=== PATIENT | female | born 1975 | race American Indian/Alaskan Native ===

== ENCOUNTER 2021-05-22 17:48 | Emergency (ER) | payer BC ==
[2021-05-22] MEDS ORDERED: SODIUM CHLORIDE 0.9% 1000 ML IV SOLN IV ONE ×2 (18:15→21:00)
[2021-05-22] MEDS ORDERED: MORPHINE 4 MG/1 ML INJ IV ONE ×2 (18:16→21:00)
[2021-05-22] MEDS ORDERED: ONDANSETRON 4 MG/2 ML INJ IV ONE ×2 (18:16→21:00)
[2021-05-22] MEDS ORDERED: PIPERACIL/TAZOBACTA 4.5/NS 100 4.5 GM/100 ML VIAL IV ONE ×2 (18:16→21:00)
--- NOTE | 2021-05-22 18:27 | Emergency Department Report ---
<PHYLLIS ISIDRO - Last Filed: 05/22/21 21:38> ED Abdominal Pain HPI - General Chief Complaint: Abdominal Pain Stated Complaint: SHARP PAIN IN STOMACH Time Seen by Provider: 05/22/21 18:14 Source: patient Mode of arrival: Ambulatory Limitations: No Limitations - History of Present Illness Initial Comments: Patient is a 46-year-old female presents emergency room complaints of upper abdominal pain that began a week ago. She states initially it began in her left upper quadrant but now radiates across the entire upper abdomen. She states that she has no appetite. She states that she has been able to tolerate liquids. She states that she has not had a bowel movement approximately 2 days. She states that she went to urgent care and reports that she had a negative COVID-19 test and she states that she was started on Carafate and omeprazole but her symptoms have not been improving. She denies any nausea, vomiting, diarrhea, urinary symptoms, hematochezia, melena, hematemesis. Patient denies any past medical history. No allergies to medications. She denies any past abdominal surgical history. - Related Data Previous Rx's Medication Instructions Recorded Last Taken Type Famotidine [Pepcid] 20 mg PO BID #30 tablet 05/23/21 Unknown Rx HYDROcodone/APAP 5-325 [[place] 1 each PO Q6HR PRN #10 tablet 05/23/21 Unknown Rx 5/325] Ondansetron [Zofran Odt] 4 mg PO Q8HR PRN #15 tab.rapdis 05/23/21 Unknown Rx Pantoprazole [Protonix] 40 mg PO QDAY #30 tablet 05/23/21 Unknown Rx metroNIDAZOLE [Flagyl] 500 mg PO Q12HR #14 tab 05/23/21 Unknown Rx Allergies Allergy/AdvReac Type Severity Reaction Status Date / Time No Known Allergies Allergy Verified 05/22/21 20:43 ED Review of Systems Comment: All other systems reviewed and negative ED Past Medical Hx - Past Medical History Previous Medical History?: No - Surgical History Past Surgical History?: No - Social History Smoking Status: Unknown if ever smoked Substance Use Type: None - Medications Home Medications: Home Medications Medication Instructions Recorded Confirmed Last Taken Type Famotidine [Pepcid] 20 mg PO BID #30 tablet 05/23/21 Unknown Rx HYDROcodone/APAP 5-325 [[place] 1 each PO Q6HR PRN #10 tablet 05/23/21 Unknown Rx 5/325] Ondansetron [Zofran Odt] 4 mg PO Q8HR PRN #15 tab.rapdis 05/23/21 Unknown Rx Pantoprazole [Protonix] 40 mg PO QDAY #30 tablet 05/23/21 Unknown Rx metroNIDAZOLE [Flagyl] 500 mg PO Q12HR #14 tab 05/23/21 Unknown Rx ED Physical Exam - General Limitations: No Limitations General appearance: alert, in no apparent distress - Head Head exam: Present: atraumatic, normocephalic - Eye Eye exam: Present: normal appearance - ENT ENT exam: Present: mucous membranes moist - Respiratory Respiratory exam: Present: normal lung sounds bilaterally. Absent: respiratory distress, wheezes, rales, rhonchi, stridor, chest wall tenderness, accessory muscle use, decreased breath sounds, prolonged expiratory - Cardiovascular Cardiovascular Exam: Present: normal rhythm, tachycardia, normal heart sounds. Absent: systolic murmur, diastolic murmur, rubs, gallop - GI/Abdominal GI/Abdominal exam: Present: soft, tenderness (generalized upper), guarding (voluntary ), normal bowel sounds. Absent: distended, rebound, rigid - Neurological Exam Neurological exam: Present: alert, oriented X3 - Psychiatric Psychiatric exam: Present: normal affect, normal mood - Skin Skin exam: Present: warm, dry, intact ED Medical Decision Making - Lab Data Result diagrams: 05/22/21 18:20 05/22/21 18:20 - Radiology Data Radiology results: report reviewed Ordering Physician: SOLEDAD OSORIO Date of Service: 05/22/21 Procedure(s): CT abdomen pelvis w con Accession Number(s): [id number] cc: SOLEDAD OSORIO CT ABDOMEN AND PELVIS WITH CONTRAST INDICATION / CLINICAL INFORMATION: upper abd pain, fever. TECHNIQUE: Axial CT images were obtained through the abdomen and pelvis after IV contrast. All CT scans at this location are performed using CT dose reduction for ALARA by means of automated exposure control. COMPARISON: None available. FINDINGS: LOWER CHEST: No significant abnormality. LIVER: No significant abnormality. GALLBLADDER: No significant abnormality. BILE DUCTS: No significant abnormality. PANCREAS: No significant abnormality. SPLEEN: No significant abnormality. ADRENALS: No significant abnormality. RIGHT KIDNEY / URETER: No significant abnormality. LEFT KIDNEY / URETER: No significant abnormality. STOMACH / SMALL BOWEL: No significant abnormality. COLON: No significant abnormality. APPENDIX: Nonvisualized. PERITONEUM: No free fluid. No free air. No fluid collection. LYMPH NODES: No significant adenopathy. VASCULAR STRUCTURES: No significant abnormality. URINARY BLADDER: No significant abnormality. REPRODUCTIVE ORGANS: Prominent vessels adjacent to the left ovary with dilatation of the left ovarian vein measuring approximately 1 cm. ADDITIONAL FINDINGS: None. SKELETAL SYSTEM: No significant abnormality. IMPRESSION: 1. No inflammatory process at the upper abdomen. 2. The right lower quadrant/pelvic region is not well evaluated due to possibly of intra-abdominal fat. 3. Possible pelvic venous congestion. Signer Name: Nadeem Crockett MD Signed: 05/22/2021 8:52 PM Workstation Name: [id number] Transcribed By: QI Dictated By: Nadeem Crockett MD Electronically Authenticated By: Nadeem Crockett MD Signed Date/Time: 05/22/212051 DD/ 45 TD/TT: - Medical Decision Making Patient is a 46-year-old female presents emergency room complaints of upper abdominal pain that began a week ago. She states initially it began in her left upper quadrant but now radiates across the entire upper abdomen. She states that she has no appetite. She states that she has been able to tolerate liquids. She states that she has not had a bowel movement approximately 2 days. She states that she went to urgent care and reports that she had a negative COVID-19 test and she states that she was started on Carafate and omeprazole but her symptoms have not been improving. She denies any nausea, vomiting, diarrhea, urinary symptoms, hematochezia, melena, hematemesis. Patient denies any past medical history. No allergies to medications. She denies any past abdominal surgical history. Initial vitals with fever and tachycardia, sepsis protocol initiated. Patient given IV fluids, IV antibiotics, pain medication, nausea medication. On exam patient has generalized upper abdominal tenderness palpation with some voluntary guarding, no rebound. Labs are stable. No leukocytosis. hCG is negative. UA without evidence of UTI. CT abdomen pelvis with IV contrast: 1. No inflammatory process at the upper abdomen. 2. The right lower quadrant/pelvic region is not well evaluated due to possibly of intra-abdominal fat. 3. Possible pelvic venous congestion. Patient signed out to Karina Aleman PA-C pending ultrasound ED Disposition Clinical Impression: Upper abdominal pain, Pelvic congestion syndrome, Bacterial vaginosis, SIRS (systemic inflammatory response syndrome) Disposition: 01 HOME / SELF CARE / HOMELESS Condition: Stable Instructions: Gastritis, Adult, [id number]-Bqli, Bacterial Vaginosis, Oafp-mr-Tarn, Abdominal Pain, Adult, [id number], Bacterial Vaginosis (ED), Ab dominal Pain (ED) Additional Instructions: I recommend taking the flagyl as prescribed. Do not drink alcohol while taking the flagyl and also take with food. I recommend that you follow up with OBGYN listed on your discharge instructions for further evaluation of this pelvic congestions symdrome. I also recommend follow up with GI for further evaluation of your upper abdominal pain as it could be related to gastritis, or peptic Ulcer disease and you may need endoscopy. Take the norco and zofran as prescribed. I also recommend taking the pepcid and the protonic as prescribed. Return to ED if worse. Prescriptions: metroNIDAZOLE [Flagyl] 500 mg PO Q12HR #14 tab HYDROcodone/APAP 5-325 [[place] 5/325] 1 each PO Q6HR PRN #10 tablet PRN Reason: Pain Famotidine [Pepcid] 20 mg PO BID #30 tablet Pantoprazole [Protonix] 40 mg PO QDAY #30 tablet Ondansetron [Zofran Odt] 4 mg PO Q8HR PRN #15 tab.rapdis PRN Reason: nausea/vomiting Referrals: [facility] [Provider Group] - 3-5 Days [facility] [Provider Group] - 3-5 Days Forms: STI Treatment and Prevention <KARINA ALEMAN - Last Filed: 05/23/21 01:32> ED Review of Systems ROS: Stated complaint: SHARP PAIN IN STOMACH Other details as noted in HPI ED Course Vital Signs 05/22/21 18:11 Temperature 100.3 F H Pulse Rate 110 H Respiratory 18 Rate Blood Pressure 131/77 Blood Pressure 131/77 [Left] O2 Sat by Pulse 100 Oximetry ED Medical Decision Making - Lab Data Result diagrams: 05/22/21 18:20 05/22/21 18:20 - Radiology Data Patient: ELISA BURCIAGA MR#: [id number] : 1975 Acct:[id number] Age/Sex: 46 / F ADM Date: 05/22/21 Loc: ED Attending Dr: Ordering Physician: SOLEDAD OSORIO Date of Service: 05/22/21 Procedure(s): US pelvic complete Accession Number(s): [id number] cc: SOLEDAD OSORIO ULTRASOUND PELVIS INDICATION / CLINICAL INFORMATION: abd pain, abnormal CT. TECHNIQUE: Transabdominal. Duplex Color Doppler used: Yes. COMPARISON: CT 05/22/2021 FINDINGS: UTERUS: Normal measuring 8.7 x 5.2 x 5.7 cm. The endometrial thickness is 4.7 mm. RIGHT ADNEXA: No significant ovarian cyst or mass. Normal color Doppler blood flow. Normal measuring 4.7 x 1.9 x 2.0 cm. LEFT ADNEXA: No significant ovarian cyst or mass. Normal color Doppler blood flow. Normal measuring 3.2 x 2.3 x 1.3 cm. There are dilated blood vessels seen adjacent to the left ovary which are nonspecific. URINARY BLADDER: No significant abnormality. FREE FLUID: None. ADDITIONAL FINDINGS: None. IMPRESSION: 1. Bilateral ovaries are within normal limits. Dilated vessels seen adjacent to the left ovary, as seen on CT, are nonspecific but can be seen with pelvic congestion syndrome. Signer Name: Tala Velásquez MD Signed: 05/22/2021 10:49 PM Workstation Name: [id number] Transcribed By: DB Dictated By: TALA VELÁSQUEZ MD Electronically Authenticated By: TALA VELÁSQUEZ MD Signed Date/Time: 05/22/212248 DD/ 45 TD/TT: Patient: ELISA BURCIAGA MR#: [id number] : 1975 Acct:[id number] Age/Sex: 46 / F ADM Date: 05/22/21 Loc: ED Attending Dr: Ordering Physician: KARINA ALEMAN Date of Service: 05/23/21 Procedure(s): XR chest routine 2V Accession Number(s): [id number] cc: KARINA ALEMAN Fluoro Time In Minutes: CHEST PA AND LATERAL VIEWS INDICATION: fever. COMPARISON: None. FINDINGS: Support devices: None. Heart: Within normal limits. Lungs/Pleura: There are mild increased reticular markings in the mid to lower lungs with suggestion of peribronchial cuffing. IMPRESSION: 1. Probable lower airways disease. Signer Name: Koko Hand MD Signed: 05/23/2021 12:40 AM Workstation Name: [id number] Transcribed By: HELDER Dictated By: Koko Hand MD Electronically Authenticated By: Koko Hand MD Signed Date/Time: 05/23/2139 DD/ 003 TD/TT: - Medical Decision Making 2320: Pelvic ultrasound shows - Bilateral ovaries are within normal limits. Dilated vessels seen adjacent to the left ovary, as seen on CT, are nonspecific but can be seen with pelvic congestion syndrome. Patient reassessment--patient states that her pain is currently 8 out of 10. Patient states that she has not been sexually active since September 2019. She denies any abnormal vaginal discharge. Her last menstrual cycle ended about 2 days ago. She is not currently on any control. She has been twice before in the past all vaginal deliveries. She states that the pain has been in her upper abdomen but radiates into her lower abdomen. Repeat abdominal exam shows diffuse lower abdominal tenderness but without any guarding or rebound but she also has tenderness to epigastric and right upper quadrant area with some mild guarding but no rebound. She has no abdominal distention. Pelvic exam shows mild right adnexal tenderness, small amount of clear white discharge but no CMT. Wet prep pending. Discussed case with Dr Allen, she recommend adding Cxr to r/o pneumonia and consulting OBGYN. 0115: Chest x-ray shows probable lower disease but otherwise no pneumonia. White prep positive for BV. Discussed case with certified professional midwife, Lyndsey who works with Dr Mathis (OBGYN), she recommends treating patient for BV and having patient follow up in their office but there is nothing extra to do about the pelvic congestion syndrome at this time. 1325: Patient currently resting comfortably. She is not toxic or in any significant distress. Repeat VS (BP 111/59, O2 99% RA, HR 85, RR16) show improvement of her temp and HR. exact cause of her fever at this time unclear, it probably related to SIRS but no evidence of sepsis at this time. Discussed all lab /and imaging results with patient. Recommend follow up with obgyn but also GI for possible endoscopy to rule out peptic ulcer disease. patient expressed understanding of all results and agreed with plan. Pt was stable at time of discharge. Critical care attestation.: If time is entered above; I have spent that time in minutes in the direct care of this critically ill patient, excluding procedure time. ED Disposition Is pt being admited?: No Does the pt Need Aspirin: No Time of Disposition: 01:09
[2021-05-22 18:36] LABS: Basophils % (Auto) 0.5 % (0.0-1.8); Eosinophils % (Auto) 0.5 % (0.0-4.3); Hematocrit 32.6 % (30.3-42.9); Hemoglobin 10.9 gm/dl (10.1-14.3); Lymphocytes # (Auto) 1.3 K/mm3 (1.2-5.4); Lymphocytes % (Auto) 15.6 % (13.4-35.0); Mean Corpuscular HGB Conc 33 % (30-34); Mean Corpuscular Volume 81 fl (79-97); Monocytes % (Auto) 11.6 % (0.0-7.3); Platelet Count 467 K/mm3 (140-440); Red Blood Count 4.05 M/mm3 (3.65-5.03); Red Cell Distribution Width 12.7 % (13.2-15.2)
[2021-05-22 18:52] LABS: Alanine Aminotransferase 7 units/L (7-56); Albumin 3.9 g/dL (3.9-5); Blood Urea Nitrogen 7 mg/dL (7-17); Calcium 9.8 mg/dL (8.4-10.2); Hemolysis Index 78
[2021-05-22 18:54] LABS: BUN/Creatinine Ratio 10
--- NOTE | 2021-05-22 20:56 | Cat Scan Report ---
CT ABDOMEN AND PELVIS WITH CONTRAST INDICATION / CLINICAL INFORMATION: upper abd pain, fever. TECHNIQUE: Axial CT images were obtained through the abdomen and pelvis after IV contrast. All CT sc ans at this location are performed using CT dose reduction for ALARA by means of automated exposure c ontrol. COMPARISON: None available. FINDINGS: LOWER CHEST: No significant abnormality. LIVER: No significant abnormality. GALLBLADDER: No significant abnormality. BILE DUCTS: No significant abnormality. PANCREAS: No significant abnormality. SPLEEN: No significant abnormality. ADRENALS: No significant abnormality. RIGHT KIDNEY / URETER: No significant abnormality. LEFT KIDNEY / URETER: No significant abnormality. STOMACH / SMALL BOWEL: No significant abnormality. COLON: No significant abnormality. APPENDIX: Nonvisualized. PERITONEUM: No free fluid. No free air. No fluid collection. LYMPH NODES: No significant adenopathy. VASCULAR STRUCTURES: No significant abnormality. URINARY BLADDER: No significant abnormality. REPRODUCTIVE ORGANS: Prominent vessels adjacent to the left ovary with dilatation of the left ovarian vein measuring approximately 1 cm. ADDITIONAL FINDINGS: None. SKELETAL SYSTEM: No significant abnormality. IMPRESSION: 1. No inflammatory process at the upper abdomen. 2. The right lower quadrant/pelvic region is not well evaluated due to possibly of intra-abdominal fa t. 3. Possible pelvic venous congestion. Signer Name: Nadeem Crockett MD Signed: 05/22/2021 8:52 PM Workstation Name: [id number]
[2021-05-22 21:26] LABS: Bilirubin,Urine NEG (Negative); Blood,Urine NEG (Negative); Color,Urine Yellow (Yellow); Mucus,Urine FEW /HPF; Protein,Urine <15 mg/dL mg/dL (Negative)
--- NOTE | 2021-05-22 22:53 | Ultrasound Report ---
ULTRASOUND PELVIS INDICATION / CLINICAL INFORMATION: abd pain, abnormal CT. TECHNIQUE: Transabdominal. Duplex Color Doppler used: Yes. COMPARISON: CT 05/22/2021 FINDINGS: UTERUS: Normal measuring 8.7 x 5.2 x 5.7 cm. The endometrial thickness is 4.7 mm. RIGHT ADNEXA: No significant ovarian cyst or mass. Normal color Doppler blood flow. Normal measuring 4.7 x 1.9 x 2.0 cm. LEFT ADNEXA: No significant ovarian cyst or mass. Normal color Doppler blood flow. Normal measuring 3 .2 x 2.3 x 1.3 cm. There are dilated blood vessels seen adjacent to the left ovary which are nonspeci fic. URINARY BLADDER: No significant abnormality. FREE FLUID: None. ADDITIONAL FINDINGS: None. IMPRESSION: 1. Bilateral ovaries are within normal limits. Dilated vessels seen adjacent to the left ovary, as se en on CT, are nonspecific but can be seen with pelvic congestion syndrome. Signer Name: Franklyn Velásquez MD Signed: 05/22/2021 10:49 PM Workstation Name: [id number]
[2021-05-22] MEDS ORDERED: HYDROcodone/ACETAMINOPHEN 5-325 MG TAB PO ONE (23:31)
--- NOTE | 2021-05-23 00:45 | XRay Report ---
CHEST PA AND LATERAL VIEWS INDICATION: fever. COMPARISON: None. FINDINGS: Support devices: None. Heart: Within normal limits. Lungs/Pleura: There are mild increased reticular markings in the mid to lower lungs with suggestion o f peribronchial cuffing. IMPRESSION: 1. Probable lower airways disease. Signer Name: Koko Hand MD Signed: 05/23/2021 12:40 AM Workstation Name: [id number]
[2021-05-23 01:32] VITALS: BP 111/59
== END 2021-05-23 01:29 | disposition home or self-care (01) ==
LOC: ED 17:48
DX: N76.0 Acute vaginitis (principal); R65.10 Systemic inflammatory response syndrome (SIRS) of non-infectious origin without acute organ dysfunction; R10.10 Upper abdominal pain, unspecified; N94.89 Other specified conditions associated with female genital organs and menstrual cycle; B96.89 Other specified bacterial agents as the cause of diseases classified elsewhere
CPT/HCPCS: 36415; 71046; 74177; 76856; 80053; 81001; 82140; 83690; 84703; 85025; 87040; 87210; 87591; 96365; 96375; 99285; J2270; J2405; J2543; J7030; Q9967